=== PATIENT | male | born 1950 | race Caucasian/White ===

== ENCOUNTER 2016-11-13 19:59 | Emergency (ER) | payer MEDICARE, OTHER ==
[2016-11-13] MEDS ORDERED: Sodium Chloride 0.9% 10 ML Syringe FLUSH PRN (20:11)
[2016-11-13 21:02] VITALS: BP 138/89
--- NOTE | 2016-11-13 22:05 | EDM.PDOC ---
ED HPI GENERAL MEDICAL PROBLEM - General Chief Complaint: Trauma Stated Complaint: [facility] Time Seen by Provider: 11/13/16 20:07 Source of Information: Reports: Patient History Limitations: Reports: No Limitations - History of Present Illness INITIAL COMMENTS - FREE TEXT/NARRATIVE: 66-year-old male presents via [facility] for evaluation treatment of neck injury. 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 Was approximately 4 feet off the ground when he fell. He landed on his head and neck. He is currently complaining of neck pain in the C5-C6 area. He reports numbness and tingling to his arms initially but this has now resolved. EMS arrived and he was placed in a c-collar. Initially he reported his pain was a 10 out of 10; after being C-collared he was reporting pain as a 4 out of 10. No medications given prior to arrival in the ER. Patient denies any loss of consciousness, headaches, nausea, vomiting, back pain, chest pain, shortness of breath, abdominal pain, lightheadedness, dizziness, arm or leg pain. EMS reports that he had a right chronic shoulder injury. Reportedly needs a right shoulder replacement. Trauma alert called upon arrival to the ER. 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 Neck Pain Score (Numeric/FACES): 4 - Related Data Allergies Allergy/AdvReac Type Severity Reaction Status Date / Time No Known Allergies Allergy Verified 11/13/16 20:06 Home Meds: Home Meds Propranolol [Inderal] 20 mg PO BID 11/13/16 [History] amLODIPine Besylate/Benazepril [Amlodipine-Benazepril 5-20 MG] 1 cap PO DAILY [History] Past Medical History HEENT History: Reports: Impaired Vision Other HEENT History: wears corrective lenses Cardiovascular History: Reports: Hypertension - Past Surgical History Musculoskeletal Surgical History: Reports: Other (See Below) Other Musculoskeletal Surgeries/Procedures:: left rotator cuff repair Social & Family History - Tobacco Use Smoking Status *Q: Current Every Day Smoker Years of Tobacco use: 10 Packs/Tins Daily: 1 Used Tobacco, but Quit: No Second Hand Smoke Exposure: No - Caffeine Use Caffeine Use: Reports: Soda - Recreational Drug Use Recreational Drug Use: No Review of Systems - Review of Systems Review Of Systems: See Below Ears: Denies: Dizziness Respiratory: Denies: Shortness of Breath Cardiovascular: Denies: Chest Pain GI/Abdominal: Denies: Abdominal Pain, Nausea, Vomiting Musculoskeletal: Reports: Neck Pain. Denies: Arm Pain, Back Pain, Leg Pain Neurological: Reports: Numbness (initally now resolved), Tingling (initally now resolved). Denies: Headache, Syncope ED EXAM, GENERAL - Physical Exam Exam: See Below Exam Limited By: No Limitations General Appearance: Alert, WD/WN, No Apparent Distress Eye Exam: Bilateral Eye: EOMI, PERRL Ears: Normal External Exam Nose: Normal Inspection, No Blood Throat/Mouth: Normal Inspection, Normal Lips, Normal Voice, No Airway Compromise Head: Atraumatic, Normocephalic Neck: Normal Inspection, Other (c-collar in place) Respiratory/Chest: No Respiratory Distress, Lungs Clear, Normal Breath Sounds, Chest Non-Tender Cardiovascular: Normal Peripheral Pulses, Regular Rate, Rhythm, No Murmur Peripheral Pulses: 2+: Radial (L), Radial (R), Posterior Tibial (L), Posterior Tibial (R) GI/Abdominal: Soft, Non-Tender Back Exam: Normal Inspection, Other (cervical spine maintained and log rolled to evaluate back). No: Vertebral Tenderness Extremities: Normal Inspection, Normal Range of Motion, Non-Tender, Other ( reports good sensation to the arms and legs; able to move arms and legs ) Neurological: Alert, Oriented, Normal Cognition Psychiatric: Normal Affect, Normal Mood Skin Exam: Warm, Dry, Normal Color Course - Vital Signs Last Recorded V/S: Last Vital Signs Temp 36.2 C 11/13/16 20:03 Pulse 77 11/13/16 21:00 Resp 12 11/13/16 21:00 BP 138/89 11/13/16 21:00 Pulse Ox 97 11/13/16 21:00 - Orders/Labs/Meds Labs: Laboratory Tests 11/13/16 11/13/16 11/13/16 Range/Units 20:05 20:05 21:40 WBC 7.99 (4.23-9.07) K/mm3 RBC 5.01 (4.63-6.08) M/mm3 Hgb 15.7 (13.7-17.5) gm/L Hct 47.0 (40.1-51.0) % MCV 93.8 H (79.0-92.2) fl MCH 31.3 (25.7-32.2) pg MCHC 33.4 (32.2-35.5) g/dl RDW Std Deviation 44.7 H (35.1-43.9) fL Plt Count 239 (163-337) K/mm3 MPV 9.4 (9.4-12.3) fl Neut % (Auto) 71.8 H (34.0-67.9) % Lymph % (Auto) 16.9 L (21.8-53.1) % [place] % (Auto) 7.9 (5.3-12.2) % Eos % (Auto) 2.3 (0.8-7.0) Baso % (Auto) 0.8 (0.1-1.2) % Neut # (Auto) 5.75 H (1.78-5.38) K/mm3 Lymph # (Auto) 1.35 (1.32-3.57) K/mm3 [place] # (Auto) 0.63 (0.30-0.82) K/mm3 Eos # (Auto) 0.18 (0.04-0.54) K/mm3 Baso # (Auto) 0.06 (0.01-0.08) K/mm3 Sodium 143 (136-145) mEq/L Potassium 4.3 (3.5-5.1) mEq/L Chloride 106 (98-107) mEq/L Carbon Dioxide 29 (21-32) mEq/L Anion Gap 12.3 (5-15) BUN 20 H (7-18) mg/dL Creatinine 1.3 (0.7-1.3) mg/dL Est Cr Clr Drug Dosing 52.96 mL/min Estimated GFR (MDRD) 55 (>60) mL/min BUN/Creatinine Ratio 15.4 (14-18) Glucose 95 (80-115) mg/dL Calcium 9.0 (8.5-10.1) mg/dL Total Bilirubin 0.3 (0.2-1.0) mg/dL AST 21 (15-37) U/L ALT 27 (16-63) U/L Alkaline Phosphatase 56 (46-116) U/L Total Protein 7.4 (6.4-8.2) g/dl Albumin 4.1 (3.4-5.0) g/dl Globulin 3.3 gm/dL Albumin/Globulin Ratio 1.2 (1-2) Lipase 246 (73-393) U/L Urine Color Yellow (Yellow) Urine Appearance Clear (Clear) Urine pH 7.0 (5.0-8.0) Ur Specific [place] 1.025 (1.005-1.030) Urine Protein Negative (Negative) Urine Glucose (UA) Negative (Negative) Urine Ketones 1+ H (Negative) Urine Occult Blood 2+ H (Negative) Urine Nitrite Negative (Negative) Urine Bilirubin Negative (Negative) Urine Urobilinogen 0.2 (0.2-1.0) Ur Leukocyte Esterase Negative (Negative) Urine RBC 0-5 (0-5) /hpf Urine WBC 0-5 (0-5) /hpf Ur Epithelial Cells 0-5 (0-5) /hpf Urine Bacteria Not seen (FEW) /hpf Urine Mucus Not seen (FEW) /hpf Meds: Medications Discontinued Medications Generic Name Dose Route Start Last Admin Trade Name Freq PRN Reason Stop Dose Admin Sodium Chloride 10 ml 11/13/16 20:11 Saline Flush FLUSH ASDIRECTED PRN Keep Vein Open - Radiology Interpretation Free Text/Narrative:: CT of the head without contrast impression per vrad no evidence for acute transcortical infarct, acute hemorrhage or mass effect. He of the cervical spine without contrast impression per vrad no acute fracture or traumatic subluxation. CT Results Date: 11/13/16 - Re-Assessments/Exams Free Text/Narrative Re-Assessment/Exam: 11/13/16 22:[address] results returned, Hard C collar removed. Patient was able to get up and move around. Continues to have neck discomfort. Soft neck collar applied which improved the neck pain. No other complaints when up an moving. No lightheadedness or dizziness when up and moving. Will discharge home with instructions to follow-up with PCP. Discharge instructions as documented . Departure - Departure Time of Disposition: 22:03 Disposition: Home, Self-Care 01 Condition: Good Clinical Impression: Neck strain Qualifiers: Encounter type: initial encounter Qualified Code(s): S16.1XXA - Strain of muscle, fascia and tendon at neck level, initial encounter Fall Qualifiers: Encounter type: initial encounter Qualified Code(s): W19.XXXA - Unspecified fall, initial encounter - Discharge Information Instructions: Cervical Sprain, Cervical Collar, Cervical Sprain, [id number] Referrals: PCP,None [Primary Care Provider] - Derian Cornell MD [Resident] - Forms: ED Department Discharge Additional Instructions: may wear the neck brace as needed for comfort. Ice the sore areas as needed for pain relief. [id number] Tylenol or Motrin as needed for pain relief. Follow up with your primary care provider for recheck of your symptoms this week or early next week. Please return to the ER immediately if your symptoms change or worsen.
--- NOTE | 2016-11-14 15:10 | CR ---
Chest: Frontal view of the chest was obtained. Comparison: No prior chest x-ray. Heart size is normal. Mild tortuosity of the thoracic aorta is seen. Lungs are clear. Mild scoliosis and degenerative change is seen within the spine. Previous left shoulder surgery is noted. Impression: 1. Incidental findings. Nothing acute is appreciated on frontal chest x-ray. Diagnostic code #2
--- NOTE | 2016-11-14 15:10 | CT ---
CT cervical spine Technique: Multiple axial sections were obtained from above C1 inferiorly to the top of T2. Reconstructed sagittal and coronal images were reviewed. Comparison: No previous cervical spine imaging. Findings: Diffuse disc space narrowing is noted throughout the cervical and upper thoracic spine. Mild scattered anterior endplate osteophytes are seen. Posterior spurring is also seen diffusely within the cervical spine. Mild degenerative change is seen between the dens and anterior arch of C1. Mastoid sinuses and middle ear cavities are clear. No acute skull base abnormality is seen. Vertebral bodies and posterior arches are intact. Moderate bilateral neural foraminal stenosis is noted at C6-C7. Moderate bilateral neural foraminal stenosis is noted at C4-C5. Mild to moderate bilateral neural foraminal stenosis is noted at C3-C4. No bony central canal stenosis is seen. Degenerative spurring is noted throughout the uncovertebral joints. Incidental small retention cyst is noted within the sphenoid sinus. Impression: 1. Diffuse degenerative change. 2. Nothing acute is appreciated on CT study of the cervical spine. Diagnostic code #3 Agree with preliminary report issued by [facility] ([facility] preliminary report dictated on 11/13/16, 10:09 PM Central Time)
--- NOTE | 2016-11-14 15:10 | CT ---
Head CT Technique: Multiple axial sections through the brain were obtained. Intravenous contrast was not utilized. Comparison: No previous intracranial imaging. Findings: Ventricles along with basal cisterns and sulci over the convexities are mildly prominent. Mild areas of diminished density are noted within the periventricular and subcortical white matter which is compatible with slight small vessel ischemic demyelination change. Several low density areas are noted within the basal ganglia which are felt compatible with similar etiology. No other abnormal parenchymal densities are seen. No evidence of intracranial hemorrhage. No midline shift or mass effect is seen. Bone window settings were reviewed which show the mastoid and middle ear cavities to appear clear. No acute abnormality is seen within the skull. Slight mucosal thickening is seen within the ethmoid sinuses. Small retention cyst is noted within the sphenoid sinus. Impression: 1. Incidental sinus findings likely chronic. 2. Mild senescent change. 3. No acute intracranial abnormality is identified. Diagnostic code #2 Agree with preliminary report issued by [facility] ([facility] preliminary report dictated on 11/13/16, 10:06 PM Central Time)
== END 2016-11-13 22:10 | disposition home or self-care (01) ==
LOC: JD.ED 19:59
DX: S16.1XXA Strain of muscle, fascia and tendon at neck level, initial encounter (principal); H54.7 Unspecified visual loss; I10 Essential (primary) hypertension; F17.210 Nicotine dependence, cigarettes, uncomplicated; W17.89XA Other fall from one level to another, initial encounter; Z79.899 Other long term (current) drug therapy
CPT/HCPCS: 36415; 70450; 70450-26; 71010; 71010-26; 72125; 72125-26; 80053; 81001; 83690; 85025; 99284; 99285; 99285-25

== ENCOUNTER 2021-03-24 18:30 | Emergency (ER) | payer MEDICARE, OTHER ==
[2021-03-24 19:24] VITALS: BP 122/86; PULSE 67
--- NOTE | 2021-03-24 20:02 | CR ---
Right knee: AP, lateral and sunrise patellar views of the right knee were obtained. Comparison: No prior right knee study is available. Oblique fracture is identified within the proximal tibia. This appears to start within the intercondylar notch and then extend medially to involve the metaphysis of the tibia. Alignment remains close to anatomic. Chondrocalcinosis is noted within the medial and lateral menisci. Slight narrowing of the lateral patellofemoral joint is seen. Joint effusion is present. Impression: 1. Proximal tibial fracture as noted above. Joint effusion is also noted. 2. Chondrocalcinosis and mild degenerative change is also seen. Diagnostic code #3
--- NOTE | 2021-03-24 20:02 | EDM.PDOC ---
ED HPI GENERAL MEDICAL PROBLEM - General Chief Complaint: Lower Extremity Injury/Pain Stated Complaint: KNEE INJURY Time Seen by Provider: 03/24/21 19:33 Source of Information: Reports: Patient, Family () History Limitations: Reports: No Limitations - History of Present Illness INITIAL COMMENTS - FREE TEXT/NARRATIVE: Mr. Harrington is a very pleasant 79-year-old gentleman who now presents to the ED with a right knee injury. He states that he accidentally stepped off of the slide of [place] 2 [place] [employer] around 16:30 this afternoon. He likely came down on a straight right leg, but then fell onto his right knee. He needed help to get up, and states that he cannot bear weight on his right lower extremity. His right knee has since become swollen. He denies any other injuries. No prior right knee injury. The patient has not taken any ctet-dch-pcocwgl or home remedies since his injury. His last oral intake was around noon today. At triage, the patient was found to be hemodynamically stable, afebrile, saturating 98% on room air. He appears to be mildly uncomfortable, but in no acute distress. Prior to this afternoon's knee injury, the patient denies having a recent fever, chills, sore throat, ear pain, nasal or sinus congestion, cough, dyspnea, chest pain, palpitations, nausea, vomiting, constipation, diarrhea, abdominal pain, urinary symptoms, recent weight gain or weight loss, recent bloody bowel movements or black bowel movements, recent joint aches, headaches, or rashes. The patient's PCP is Dr. Chidi Palomino. His Oncologist is Dr. Lobito Johns. He does not recall the name of his Surgeon in [place]. He has not received a COVID vaccination, but did receive an influenza vaccination this season. Right Knee Pain Score (Numeric/FACES): 3 - Related Data Allergies Allergy/AdvReac Type Severity Reaction Status Date / Time No Known Allergies Allergy Verified 11/13/16 20:06 Home Meds: Home Meds Propranolol [Inderal] 20 mg PO BID 11/13/16 [History] amLODIPine Besylate/Benazepril [Amlodipine-Benazepril 5-20 MG] 1 cap PO DAILY 11/13/16 [History] Acetaminophen [Tylenol Extra Strength] 500 mg PO 02/06/21 [History] Famotidine [Pepcid] 10 mg PO DAILY 02/06/21 [History] Hydrocortisone Acetate [Anusol-Hc] 25 mg RC 02/06/21 [History] Lipase/Protease/Amylase [Marianne DR 3,000 Unit] 1 each PO 02/06/21 [History] Loperamide [Imodium] 2 mg PO 02/06/21 [History] Pantoprazole Sodium [Protonix] 20 mg PO 02/06/21 [History] Pravastatin [Pravachol] 40 mg PO DAILY 02/06/21 [History] Prochlorperazine Maleate [Compazine] 10 mg PO 02/06/21 [History] Propranolol [Inderal] 20 mg PO 02/06/21 [History] Sucralfate 1 gm PO 02/06/21 [History] Zolpidem Tartrate [Ambien] 5 mg PO 02/06/21 [History] dexAMETHasone [Decadron] 4 mg PO 02/06/21 [History] Past Medical History HEENT History: Reports: Impaired Vision (wears glasses) Cardiovascular History: Reports: High Cholesterol, Hypertension Psychiatric History: Reports: Anxiety, Depression Oncologic (Cancer) History: Reports: Pancreatic (with mets to liver, s/p Whipple procedure, CTx) - Infectious Disease History Infectious Disease History: Reports: Novel Coronavirus - Past Surgical History Cardiovascular Surgical History: Reports: Other (See Below) (Port-A-Cath) GI Surgical History: Reports: Cholecystectomy (2020) Musculoskeletal Surgical History: Reports: Other (See Below) Other Musculoskeletal Surgeries/Procedures:: left rotator cuff repair Oncologic Surgical History: Reports: Other (See Below) (Whipple procedure May 2020) Social & Family History - Tobacco Use Tobacco Use Status *Q: Former Tobacco User Tobacco Use Within Last Twelve Months: Smokeless Tobacco (Chews 1/4 can per day) Years of Tobacco use: 31 Packs/Tins Daily: 1 Month/Year Tobacco Last Used: Quit 1999 Tobacco Use Comment: Started smoking 1968 - Caffeine Use Caffeine Use: Reports: Coffee, Soda - Alcohol Use Alcohol Use History: Yes Alcohol Use Frequency: Socially - Recreational Drug Use Recreational Drug Use: No - Living Situation & Occupation Living situation: Reports: , with Spouse Occupation: Retired Review of Systems - Review of Systems Review Of Systems: Comprehensive ROS is negative, except as noted in HPI. ED EXAM, GENERAL - Physical Exam Exam: See Below Exam Limited By: No Limitations General Appearance: Alert, WD/WN, No Apparent Distress Eye Exam: Bilateral Eye: EOMI, Normal Inspection Ears: Normal External Exam, Hearing Grossly Normal Nose: Normal Inspection Throat/Mouth: Normal Inspection, Normal Lips, Normal Voice, No Airway Compromise Head: Atraumatic, Normocephalic Neck: Normal Inspection, Full Range of Motion Respiratory/Chest: No Respiratory Distress, Lungs Clear, Normal Breath Sounds, No Accessory Muscle Use Cardiovascular: Normal Peripheral Pulses, Regular Rate, Rhythm, No Gallop, No JVD, No Murmur, No Rub Peripheral Pulses: 3+: Radial (L), Radial (R) GI/Abdominal: Normal Bowel Sounds, Soft, Non-Tender, No Organomegaly, No Diste ntion, No Abnormal Bruit, No Mass Back Exam: Normal Inspection Extremities: Normal Capillary Refill, Other (Generalized swelling about the right knee. Tenderness to the medial aspect of the knee. Painful attempt at PROM. Neurovascular status of the right lower extremity is intact.) Neurological: Alert, Oriented, Normal Cognition, No Motor/Sensory Deficits Psychiatric: Normal Affect Skin Exam: Warm, Dry, Intact, Normal Color, No Rash Course - Vital Signs Last Recorded V/S: Last Vital Signs Temp 36.1 C 03/24/21 19:22 Pulse 67 03/24/21 19:22 Resp 20 03/24/21 19:22 BP 122/86 03/24/21 19:22 Pulse Ox 98 03/24/21 19:22 - Orders/Labs/Meds Labs: Laboratory Tests 03/24/21 Range/Units 20:44 SARS-CoV-2 RNA ([facility]FFANIE) Negative (NEGATIVE) - Re-Assessments/Exams Free Text/Narrative Re-Assessment/Exam: 03/24/21 19:53 X-rays of the right knee were ordered at triage. 3-view radiographs of the right knee appear to demonstrate a minimally displaced medial tibial plateau fracture. No other fractures or dislocations identified. Formal read per the Radiologist pending. X-ray results discussed with the patient and his . ORIF is likely indicated. At this time, this facility is on diversion, and Dr. Rao is not on-call, however, I will attempt to contact them to see if he would like us to place the patient into a knee immobilizer with crutches and have him follow-up on Saturday, versus attempt to transfer the patient to [place]. The patient declined an offer for pain medication, but was told to inform his nurse if he changes his mind. He is to remain NPO. 03/24/21 20:25 I have not been able to get in touch with Dr. Roa, but I have been informed that he will be available on 03/27/2021. I have ordered a CT of the right knee for surgical planning, after which, the patient will be placed into a right knee immobilizer and provided with crutches. 03/24/21 20:30 The above plan was discussed with the patient and his . They are agreeable. The patient is still declining an offer for pain medication. 03/24/21 21:43 CT of the right knee without contrast is read by Dr. Philip as: 1. Mildly comminuted fracture extending anterior to posterior within the proximal tibia. Fracture line extends from the articular margin inferior to the upper metaphysis. Alignment is close to anatomic. The patient's swab for the SARS-CoV-[address] Rao got back to me. He is optimistic that the patient may not require surgery. He agreed with the plan of a knee immobilizer and crutches. He would like to see the patient in his office in 10 days. 03/24/21 21:52 CT results and the above plan discussed with the patient and his . They are agreeable to the plan. He is to take [id number] ibuprofen, and ice and elevate his right knee as much as possible over the next few days to help minimize swelling. He will be discharged with an [facility] prescription for Sk[place]e. He is to contact Dr. Rao's office on Saturday to make an appointment to be seen. Departure - Departure Time of Disposition: 21:53 Disposition: Home, Self-Care 01 Condition: Good Clinical Impression: Closed fracture of right proximal tibia - Discharge Information *PRESCRIPTION DRUG MONITORING PROGRAM REVIEWED*: Not Applicable *COPY OF PRESCRIPTION DRUG MONITORING REPORT IN PATIENT JUAN: Not Applicable Instructions: Tibial Fracture, Adult, [id number] Referrals: Chidi Palomino MD [Primary Care Provider] - Lobito Johns MD [Ordering Only Provider] - Jm Rao MD [Physician] - Forms: ED Department Discharge Additional Instructions: You were seen in the emergency room after stepping off of a ramp and injuring your right knee. Work-up in the ER included x-rays of your right knee, a CT scan of your right knee, and a swab for the SARS-CoV-2 virus. The x-rays and CT scan confirmed a right proximal tibia fracture. Your swab for the SARS-CoV-2 virus was negative. Your right leg has been placed into a knee immobilizer. Put this on over your clothes every morning, and remove at bedtime. You have been fitted with crutches. It is imperative that you use crutches for all ambulation. Do not bear weight on your right lower extremity at all. Be very careful going up and down stairs. We recommend that you ice and elevate your right knee as much as possible over the next few days, to help minimize swelling. We recommend you take [id number]-aje-[id number] ibuprofen, 3 tablets (600 mg) up to every 8 hours, with food, pqjudo-[id number] initially, then as needed for discomfort. A prescription for the opioid pain reliever Sk[place]e has been provided to you via [facility]. You may take 1 to 2 tablets of Sk[place]e every 6-8 hours, as needed for pain not relieved by ibuprofen. Skanee may cause constipation, so consider taking a stool softener. Please contact the office of the Orthopedic Surgeon Dr. Jm Rao this coming Saturday to make an appointment to be seen. Make sure that the tunnel kiln firer understands that you are following up from the ER. If any other problems, please do not hesitate to return to the ER.
--- NOTE | 2021-03-24 21:40 | CT ---
CT right knee Technique: Muliple axial views were obtained through the right knee. Additional axial sections were obtained through the right hip and the right ankle. Comparison: Prior right knee radiographic study performed earlier on the same day (7:41 PM). Findings: Right hip and right ankle show nothing acute. Axial views of the right knee show a fracture within the proximal tibia which extends anterior to posterior and is slightly comminuted. Fracture extends from the articular margin inferiorly to the upper metaphysis. Alignment appears to be anatomic. Joint effusion is seen. Impression: 1. Mildly comminuted fracture extending anterior to posterior within the proximal tibia. Fracture line extends from the articular margin inferior to the upper metaphysis. Alignment is close to anatomic. Diagnostic code #2
== END 2021-03-24 22:20 | disposition home or self-care (01) ==
LOC: JD.ED 18:30
DX: S82.101A Unspecified fracture of upper end of right tibia, initial encounter for closed fracture (principal); I10 Essential (primary) hypertension; E78.00 Pure hypercholesterolemia, unspecified; Z86.16 Personal history of COVID-19; Z87.891 Personal history of nicotine dependence; Z20.822 Contact with and (suspected) exposure to COVID-19; W18.30XA Fall on same level, unspecified, initial encounter
CPT/HCPCS: 73562; 73700; 99284; U0002

== ENCOUNTER 2021-11-26 11:10 | Emergency (ER) | payer MEDICARE, OTHER ==
[2021-11-26 11:28] VITALS: BP 100/64; PULSE 87
[2021-11-26] MEDS ORDERED: Sodium Chloride 0.9% 10 ML Syringe FLUSH PRN (11:31)
[2021-11-26] MEDS ORDERED: Sodium Chloride 0.9% 1,000 ML IV STA (11:44)
[2021-11-26] MEDS ORDERED: Sodium Chloride 0.9% 500 ML IV SCH (13:15)
== END 2021-11-26 15:50 | disposition home or self-care (01) ==
LOC: JD.ED 11:10
DX: R53.1 Weakness (principal); R19.7 Diarrhea, unspecified; I10 Essential (primary) hypertension; Z79.899 Other long term (current) drug therapy; Z86.16 Personal history of COVID-19; Z90.49 Acquired absence of other specified parts of digestive tract
CPT/HCPCS: 36415; 80053; 81001; 83735; 85025; 86140; 96360; 96361; 99284; J3490; J7030

== ENCOUNTER 2021-12-19 12:37 | Emergency (ER) | payer MEDICARE, OTHER ==
[2021-12-19 19:04] VITALS: BP 112/69; PULSE 86
== END 2021-12-19 19:50 | disposition home or self-care (01) ==
LOC: JD.ED 12:37
DX: U07.1 COVID-19 (principal); C25.9 Malignant neoplasm of pancreas, unspecified; E78.00 Pure hypercholesterolemia, unspecified; I10 Essential (primary) hypertension; Z79.899 Other long term (current) drug therapy; Z86.16 Personal history of COVID-19; Z90.49 Acquired absence of other specified parts of digestive tract
CPT/HCPCS: 36415; 80053; 81001; 83605; 84484; 85007; 85027; 85610; 85730; 87040; 93005; 99284; U0002